=== PATIENT | male | born 1980 | race Caucasian/White ===

== ENCOUNTER 2016-06-21 05:33 | Emergency (ER) | payer OTHER ==
[~2016-06-21] VITALS: Ht 167.6 cm; Wt 86.2 kg
[2016-06-21 06:18] VITALS: BP 138/90
== END 2016-06-21 06:18 | disposition other institution (70) ==
LOC: ED 05:33
DX: Z02.89 Encounter for other administrative examinations (principal); F15.10 Other stimulant abuse, uncomplicated; E78.5 Hyperlipidemia, unspecified; V49.9XXA Car occupant (driver) (passenger) injured in unspecified traffic accident, initial encounter; Y93.89 Activity, other specified; Y99.8 Other external cause status; Y92.89 Other specified places as the place of occurrence of the external cause